=== PATIENT | male | born 1975 ===

== ENCOUNTER → 2022-07-08 | Outpatient (CLI) | payer MEDICAID | END | disposition home or self-care (01) | LOC: Rad HDHVI 15:43 | PROVIDERS: ATTEND Internal Medicine Cardiovascular Disease | DX: I34.0 Nonrheumatic mitral (valve) insufficiency (principal); I10 Essential (primary) hypertension; E78.5 Hyperlipidemia, unspecified | CPT/HCPCS: 93306 ==

== ENCOUNTER → 2024-03-11 | Outpatient (CLI) | payer MEDICAID ==
[~2024-03-11] MED LIST: IOHEXOL 350 MG/ML 100ML IJ ONE
[2024-03-11 09:36] VITALS: BP 152/102; PULSE 88; RESP 18; O2SAT 98
[2024-03-11 09:55] VITALS: BP 151/103; PULSE 80; RESP 18; O2SAT 98
== END | disposition home or self-care (01) ==
LOC: Rad HDHVI 09:27
PROVIDERS: ATTEND Internal Medicine Cardiovascular Disease
DX: K40.20 Bilateral inguinal hernia, without obstruction or gangrene, not specified as recurrent (principal); K57.30 Diverticulosis of large intestine without perforation or abscess without bleeding; I10 Essential (primary) hypertension
CPT/HCPCS: 74175; G0463; Q9967